=== PATIENT | male | born 1960 | race Caucasian/White ===

== ENCOUNTER 2018-07-23 11:24 | Inpatient (IN) | payer OTHER, SELFPAY ==
[~2018-07-23] VITALS: Ht 188 cm; Wt 79.4 kg
[2018-07-23] MEDS ORDERED: PREZCOBIX 8001 EACH PO (14:41)
[2018-07-23] MEDS ORDERED: TIVICAY50 MG ORAL (14:42)
--- NOTE | 2018-07-23 15:00 | NUR ---
NURSE NOTES: Patient arrived to unit at 1430 via direct admit. No s/s acute distress noted. Patient ambulatory. Oriented to room and unit policies. Belongings inventoried and signed for. Will continue to monitor.
[2018-07-23 15:25] LABS: BASOPHILS % (AUTO) 1.3 % (0.0-2.0); EOSINOPHILS % (AUTO) 0.8 % (0.0-3.0); HEMATOCRIT 48.3 % (42.0-52.0); HEMOGLOBIN 16.6 G/DL (14.2-18.0); LYMPHOCYTES % (AUTO) 35.6 % (20.0-45.0); MEAN CORPUSCULAR VOLUME 95 FL (80-99); MONOCYTES % (AUTO) 7.3 % (1.0-10.0); PLATELET COUNT 248 K/UL (150-450); RED BLOOD COUNT 5.07 M/UL (4.70-6.10); RED CELL DISTRIBUTION WIDTH 10.7 % (11.6-14.8); WHITE BLOOD COUNT 7.1 K/UL (4.8-10.8)
[2018-07-23 16:00] VITALS: BP 122/72
--- NOTE | 2018-07-23 16:07 | History & Physical ---
History and Physical History & Physicial Full H&P dictated. 57 yo with well-controlled HIV infection (VL < 30 copies/mL, CD4 > 1000 cells/mL ) admitted electively for participation in [id number] clinical trail ( single dose cohort, 500 mg IP vs placebo). Pt has discussed risks and benefits of participation and he wishes to proceed. We will plan on dosing in AM. Clark Thakkar MD Jul 23, 2018 16:07
--- NOTE | 2018-07-23 19:39 | NUR ---
HAND-OFF: Report given to Miko MCDONALD. Patient stable.
--- NOTE | 2018-07-23 19:40 | NUR ---
NURSE NOTES: Report taken from TAMARA Diaz. Patient A&0x4 and on room air. Patient is here for clinical trial, will have infusion in the morning. Check orders, VS will only be taken at certain times. Continue to monitor patient. Bed in lowest position, call light within reach.
[2018-07-23 20:00] VITALS: BP 118/69
--- NOTE | 2018-07-23 23:00 | History and Physical Report ---
DATE OF ADMISSION: 07/23/2018 CHIEF COMPLAINT: The patient is electively admitted for participation in [facility] clinical trial, [id number]. HISTORY OF PRESENT ILLNESS: The patient is a 58-year-old man followed by my associate, Dr. Clark Ba, as an outpatient for HIV care. The patient has well controlled HIV infection on Prezcobix, and Tivicay. The patient has given opportunity to review the informed consent brochure and has voluntarily signed this and verbalized his understanding. Discussed the risks and benefits of the trial and wishes to proceed. PAST MEDICAL HISTORY: The patient was diagnosed with HIV infection in 1986. He was treated with serial monotherapy and has resolved. He has developed some NRTI and PI resistance, but no documented non-nuclear resistance. 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 His sebastian CD4 was never below 200. The patient has a history of hyperlipidemia, peripheral neuropathy, kidney stones (perhaps related to Crixivan), history of GERD and mood sensitivities. The patient had an inguinal hernia repair in 1997 and had oral surgery done for snoring. FAMILY HISTORY: The mother was diagnosed with breast cancer at age 43. His father is alive with heart disease diagnosed at age 50. He has healthy siblings. He does not smoke. SOCIAL HISTORY: The patient was born in [place], has lived in [place] for number of years. He does not smoke and drinks socially. ALLERGIES: Ciprofloxacin causes hives and Biaxin causes stomach upset. MEDICATIONS: As an outpatient include Prezcobix one tablet a day, and Tivicay 50 mg a day, vitamins, Lovaza 2 g twice a day, baby aspirin. REVIEW OF SYSTEMS: He denies fever, cough, shortness of breath. No nausea, vomiting, or diarrhea. No dysuria or hematuria. No headaches. No loss of consciousness. No seizures. PHYSICAL EXAMINATION: GENERAL: Revealed a well-nourished, well-developed male, who is in no acute distress. He is alert and oriented x4. VITAL SIGNS: Temperature was 98.3, heart rate was 78, blood pressure is 110/61. His weight was 182.2 pounds with a BMI of 23.4, his respiratory rate was 16. HEENT: Normocephalic atraumatic. Pupils equal, round, and reactive. Oropharynx is without thrush or leukoplakia. NECK: Supple. No cervical or axillary adenopathy. LUNGS: Clear to auscultation. HEART: Regular rhythm without murmurs or gallops. ABDOMEN: Soft and nontender. No hepatosplenomegaly. NEUROLOGIC: Grossly nonfocal for motor or sensory deficit. LABORATORY AND DIAGNOSTIC DATA: CBC is pending from today. In December 2017, he had a negative QuantiFERON gold, normal hemoglobin A1c, normal lipid panel and normal PSA, and normal thyroid panel. Viral load of less than 30 copies. His CD4 count was 1065 (42.6%). The patient also has history of ASCUS and had HPV genotype negative for high virulence and serotype. IMPRESSION: 1. Admission for participation in clinical trial. 2. Human immunodeficiency virus infection, well controlled. 3. Hyperlipidemia. 4. Sleep apnea. DISCUSSION: The patient is a very pleasant 58-year-old man who comes into the hospital for an infusion of investigational product of the above captioned study. We have discussed with him risks and benefits of his participation and he wishes to proceed. All questions offered by the patient were addressed. PLAN: The patient will be given 500 mg of investigational product (active drug versus placebo) tomorrow morning and he will spend the next two nights in the hospital after that. Clark Thakkar M.D. DR: Carlos JOB#: [id number] CC: Clark Thakkar M.D.; [address] [place] [address]; [address], [facility] ; Fax#: [phone] [facility]
[2018-07-24] MEDS ORDERED: [UNRECOGNIZED DRUG - REMARK] IV SCH (07:00)
--- NOTE | 2018-07-24 07:46 | NUR ---
HAND-OFF: Report given to Madhu Diaz.
[2018-07-24 08:00] VITALS: BP 118/80
--- NOTE | 2018-07-24 08:13 | NUR ---
NURSE NOTES: Received report from Miko MCDONALD. Patient was receiving clinical trial infusion during rounds, trial nurses and Dr. Thakkar at the bedside. No s/s acute distress noted. Spoke with Dr. Thakkar who reported patient may have water after 1000 and may eat after 1200. Will continue to monitor.
--- NOTE | 2018-07-24 09:49 | General Progress Note ---
Progress Note Progress Note S: no new complaints; tolerated IP infusion well this AM O: VSS Afebrile HEENT: nc/at Lungs: clear a/p Cor: reg rhythm, no murmurs Abd: soft, NT. BS normal Ext: no c/c/e Labs Test 07/23/18 14:00 White Blood Count 7.1 K/UL (4.8-10.8) Red Blood Count 5.07 M/UL (4.70-6.10) Hemoglobin 16.6 G/DL (14.2-18.0) Hematocrit 48.3 % (42.0-52.0) Mean Corpuscular Volume 95 FL (80-99) Mean Corpuscular Hemoglobin 32.8 PG (27.0-31.0) Mean Corpuscular Hemoglobin Concent 34.5 G/DL (32.0-36.0) Red Cell Distribution Width 10.7 % (11.6-14.8) Platelet Count 248 K/UL (150-450) Mean Platelet Volume 5.0 FL (6.5-10.1) Neutrophils (%) (Auto) 55.0 % (45.0-75.0) Lymphocytes (%) (Auto) 35.6 % (20.0-45.0) Monocytes (%) (Auto) 7.3 % (1.0-10.0) Eosinophils (%) (Auto) 0.8 % (0.0-3.0) Basophils (%) (Auto) 1.3 % (0.0-2.0) A: 1) Well-controlled HIV infection, on [id number] single 150 mg dose cohort. 2) h/o KS 3) hyperlipidemia 4) h/o nephrolithiasis 5) sleep apnea 6) GERD 7) DSPN P: Continue to monitor per protocol. Pt wishes to continue participation in this clinical trial. Clark Thakkar MD Jul 24, 2018 09:49
[2018-07-24 12:00] VITALS: BP 107/63
[2018-07-24] MEDS: PREZCOBIX ORAL SCH (12:27)
[2018-07-24 16:00] VITALS: BP 119/67
--- NOTE | 2018-07-24 19:16 | NUR ---
HAND-OFF: Report given to Miko MCDONALD. Patient stable.
--- NOTE | 2018-07-24 19:17 | NUR ---
NURSE NOTES: Report taken from TAMARA Diaz. patient is awake and oriented in bed. RN went over the process for this shift with patient. Patient completely independent, part of clinical trial. No skin issues. Bed in lowest position, call light within reach.
[2018-07-24 20:00] VITALS: BP 115/72
[2018-07-25 02:00] VITALS: BP 109/63
--- NOTE | 2018-07-25 07:26 | NUR ---
HAND-OFF: Report given to TAMARA Diaz.
[2018-07-25 08:00] VITALS: BP 106/65
--- NOTE | 2018-07-25 08:03 | NUR ---
NURSE NOTES: Received report from Mehreen MCDONALD. Patient is awake alert and oriented x4, no s/s acute distress. No reports of pain. Side rails upx2, bed low and locked, call light in reach. Will continue to monitor.
[2018-07-25 09:18] LABS: BASOPHILS % (AUTO) 1.1 % (0.0-2.0); EOSINOPHILS % (AUTO) 1.3 % (0.0-3.0); HEMATOCRIT 49.1 % (42.0-52.0); HEMOGLOBIN 16.4 G/DL (14.2-18.0); LYMPHOCYTES % (AUTO) 40.7 % (20.0-45.0); MEAN CORPUSCULAR VOLUME 96 FL (80-99); MONOCYTES % (AUTO) 7.8 % (1.0-10.0); NEUTROPHILS % (AUTO) 49.1 % (45.0-75.0); PLATELET COUNT 240 K/UL (150-450); RED CELL DISTRIBUTION WIDTH 11.2 % (11.6-14.8); WHITE BLOOD COUNT 5.6 K/UL (4.8-10.8)
[2018-07-25 12:00] VITALS: BP 93/70
[2018-07-25] MEDS: PREZCOBIX ORAL SCH (12:23)
--- NOTE | 2018-07-25 15:25 | General Progress Note ---
Progress Note Progress Note S: pt doing well, no new complaints O: VSS Afebrile HEENT: nc/at Neck: supple Lungs: clear a/p Cor: reg, no murmur Abd: soft, NT Neuro: non-focal Labs Test 07/23/18 14:00 07/25/18 07:40 White Blood Count 7.1 K/UL (4.8-10.8) 5.6 K/UL (4.8-10.8) Red Blood Count 5.07 M/UL (4.70-6.10) 5.10 M/UL (4.70-6.10) Hemoglobin 16.6 G/DL (14.2-18.0) 16.4 G/DL (14.2-18.0) Hematocrit 48.3 % (42.0-52.0) 49.1 % (42.0-52.0) Mean Corpuscular Volume 95 FL (80-99) 96 FL (80-99) Mean Corpuscular Hemoglobin 32.8 PG (27.0-31.0) 32.1 PG (27.0-31.0) Mean Corpuscular Hemoglobin Concent 34.5 G/DL (32.0-36.0) 33.3 G/DL (32.0-36.0) Red Cell Distribution Width 10.7 % (11.6-14.8) 11.2 % (11.6-14.8) Platelet Count 248 K/UL (150-450) 240 K/UL (150-450) Mean Platelet Volume 5.0 FL (6.5-10.1) 5.6 FL (6.5-10.1) Neutrophils (%) (Auto) 55.0 % (45.0-75.0) 49.1 % (45.0-75.0) Lymphocytes (%) (Auto) 35.6 % (20.0-45.0) 40.7 % (20.0-45.0) Monocytes (%) (Auto) 7.3 % (1.0-10.0) 7.8 % (1.0-10.0) Eosinophils (%) (Auto) 0.8 % (0.0-3.0) 1.3 % (0.0-3.0) Basophils (%) (Auto) 1.3 % (0.0-2.0) 1.1 % (0.0-2.0) A: 1) participation in clinical trial [id number]. Patient doing well, no AEs noted 2) HIV, well controlled P: 1) Continue per protocol; anticipate discharge early AM 07/26. Clark Thakkar MD Jul 25, 2018 15:25
[2018-07-25 16:00] VITALS: BP 94/63
--- NOTE | 2018-07-25 19:50 | NUR ---
HAND-OFF: Report given to Binta MCDONALD. Patient stable.
--- NOTE | 2018-07-25 19:50 | NUR ---
NURSE NOTES: Received report from Emily MCDONALD. Pt is A&O x 4 , laying semi-fowlers in bed. No signs of pain or distress. Call light in reach, bed in lowest position, side rails up x2.
[2018-07-25 20:00] VITALS: BP 112/63
[2018-07-26] VITALS: BP 132/68
[2018-07-26 04:00] VITALS: BP 110/64
[2018-07-26 07:55] LABS: BASOPHILS % (AUTO) 1.3 % (0.0-2.0); EOSINOPHILS % (AUTO) 1.3 % (0.0-3.0); HEMATOCRIT 47.3 % (42.0-52.0); HEMOGLOBIN 15.9 G/DL (14.2-18.0); MEAN CORPUSCULAR VOLUME 96 FL (80-99); MONOCYTES % (AUTO) 6.9 % (1.0-10.0); NEUTROPHILS % (AUTO) 53.6 % (45.0-75.0); PLATELET COUNT 238 K/UL (150-450); RED BLOOD COUNT 4.94 M/UL (4.70-6.10); RED CELL DISTRIBUTION WIDTH 10.8 % (11.6-14.8); WHITE BLOOD COUNT 5.6 K/UL (4.8-10.8)
[2018-07-26 08:00] VITALS: BP 124/73
--- NOTE | 2018-07-26 08:07 | NUR ---
HAND-OFF: Report given to TAMARA Medina. Patient stable.
--- NOTE | 2018-07-26 08:08 | NUR ---
NURSE NOTES: Received pt from TAMARA BARRON. Pt is alert and orient x4. No SOB or acute respiratory distress noted. pt has no iv access, Dr crouch is aware. all needs attended, bed is locked and is in the lowest position. call light within easy maria de jesus. will continue to monitor.
--- NOTE | 2018-07-26 08:28 | NUR ---
NURSE NOTES: pt has order to D/C. Dr webb visited pt , pt is stable. V/S stable. all discharge assessments and instructions done. all belongings are with pt. pt refused to take instructions and refused to sign discharge papers and belongings. Dr webb was with pt and he is aware. pt took a taxi and left hospital by him self.
--- NOTE | 2018-07-26 08:29 | Discharge Summary ---
Discharge Summary Hospital Course Date of Admission Jul 23, 2018 at 14:17 Date of Discharge Jul 26, 2018 at 08:20 Admitting Diagnosis Participation in Clinical Trial HPI Ankush Beltran is a 58 year old male who was admitted on Jul 23, 2018 at 14:17 for Clinical Trial Discharge Condition Upon Discharge: stable Discharge Disposition Patient was discharged to Home (01) Clark Thakkar MD Jul 26, 2018 08:29
--- NOTE | 2018-07-26 09:45 | Discharge Summary ---
DATE OF ADMISSION: 07/23/2018 DATE OF DISCHARGE: 07/26/2018 DISCHARGE DIAGNOSIS: Participation in clinical trial [id number]. HISTORY OF PRESENT ILLNESS AND HOSPITAL COURSE: The patient is a 58-year-old man with well-controlled HIV infection, currently being treated with Prezcobix and Tivicay. He is participating in the above-mentioned clinical trial. He was infused on the second hospital morning without any observed adverse events. The patient's blood counts were stable and he was discharged in good condition to home with self-care. DISCHARGE MEDICINES: Include Prezcobix one tablet daily and Tivicay 150 mg tablet daily. FOLLOWUP: Follow up will be in the office next week. Clark Thakkar M.D. DR: CRISTOBAL JOB#: [id number] CC:
== END 2018-07-26 08:20 | disposition home or self-care (01) | DRG 977 ==
LOC: 3E 14:17
DX: B20 Human immunodeficiency virus [HIV] disease (principal); Z00.6 Encounter for examination for normal comparison and control in clinical research program; Z88.1 Allergy status to other antibiotic agents; Z79.82 Long term (current) use of aspirin; E78.5 Hyperlipidemia, unspecified; G47.30 Sleep apnea, unspecified; K21.9 Gastro-esophageal reflux disease without esophagitis
CPT/HCPCS: 36415; 85025